=== PATIENT | female | born 1945 | race Caucasian/White ===

== ENCOUNTER → 2019-08-21 | Outpatient (CLI) | payer MEDICARE, BC | END | disposition home or self-care (01) | LOC: CFH 10:48 | PROVIDERS: ATTEND Nurse Practitioner Family | DX: N63.10 Unspecified lump in the right breast, unspecified quadrant (principal) | CPT/HCPCS: 77065 ==

== ENCOUNTER → 2019-11-02 | Outpatient (CLI) | payer MEDICARE, BC ==
[~2019-11-02] MED LIST: OMNIPAQUE 350 MG/ML, 75ML BOTTLE ONE
[2019-11-02 13:03] LABS: CREATININE 1.25 mg/dL (0.55-1.02)
== END | disposition home or self-care (01) ==
LOC: RAD 12:25
PROVIDERS: ATTEND Nurse Practitioner Family
DX: J43.2 Centrilobular emphysema (principal); R91.8 Other nonspecific abnormal finding of lung field; I51.7 Cardiomegaly; R59.9 Enlarged lymph nodes, unspecified
CPT/HCPCS: 36415; 71260; 82565; Q9967

== ENCOUNTER 2019-11-12 06:07 | Day surgery (SDC) | payer MEDICARE, BC ==
[~2019-11-12] VITALS: Ht 162.6 cm; Wt 61.2 kg
[2019-11-12 06:45] VITALS: BP 118/83
--- NOTE | 2019-11-12 06:55 | NUR ---
BRIAN ESPINOZA-Fall Risk Medications NOT present and NOT receiving anticoagulants.
[2019-11-12 07:10] VITALS: BP 118/83
[2019-11-12] MEDS ORDERED: SODIUM CHLORIDE 0.9% 1,000 ML IV SCH (07:15)
[2019-11-12] MEDS ORDERED: TRAZODONE HCL PO (07:25)
[2019-11-12] MEDS ORDERED: DULOXETINE HCL PO (07:25)
[2019-11-12] MEDS ORDERED: METO25TA35 PO (07:25)
[2019-11-12] MEDS ORDERED: GABA300C10 PO (07:25)
[2019-11-12] MEDS ORDERED: HYDR25TA6 PO (07:25)
[2019-11-12] MEDS ORDERED: ALPR0.25 PO (07:25)
[2019-11-12] MEDS ORDERED: OMEP-110 PO (07:25)
[2019-11-12] MEDS ORDERED: FENTANYL PF 100 MCG/2ML ONE (08:04)
[2019-11-12] MEDS ORDERED: FLUMAZENIL 0.1 MG/1 ML, 5ML ONE (08:05)
[2019-11-12] MEDS ORDERED: NALOXONE 1 MG/ML, 2ML ONE (08:05)
[2019-11-12] MEDS ORDERED: MIDAZOLAM 1 MG/ML, 5ML ONE (08:05)
[2019-11-12] MEDS ORDERED: TRAZ-96 PO (14:32)
== END 2019-11-12 13:00 | disposition home or self-care (01) ==
LOC: OUT 06:07
PROVIDERS: ATTEND Nurse Practitioner Family
DX: R91.8 Other nonspecific abnormal finding of lung field (principal); C34.11 Malignant neoplasm of upper lobe, right bronchus or lung; I48.91 Unspecified atrial fibrillation; I10 Essential (primary) hypertension; Z79.899 Other long term (current) drug therapy; Z88.8 Allergy status to other drugs, medicaments and biological substances; Z91.040 Latex allergy status; Z98.1 Arthrodesis status
CPT/HCPCS: 32405; 77012; 88305; 88333; 99156; 99157; J2250; J3010; J7030; J2310

== ENCOUNTER 2019-11-12 13:01 | Emergency (ER) | payer MEDICARE, BC ==
[~2019-11-12] VITALS: Ht 162.6 cm; Wt 61.0 kg
[~2019-11-12 13:01] MED LIST changes: +ALPR0.25 PO; +DULOXETINE HCL PO; +GABA300C10 PO; +HYDR25TA6 PO; +METO25TA35 PO; +OMEP-110 PO; -OMNIPAQUE 350 MG/ML, 75ML BOTTLE ONE; +TRAZODONE HCL PO
--- NOTE | 2019-11-12 13:09 | NUR ---
[phone] MASHA, WILL INCIDENT ANALYST WHEN PT READY TO GO
--- NOTE | 2019-11-12 14:20 | NUR ---
PT UP TO BS COMMODE.
[2019-11-12] MEDS ORDERED: TRAZ-96 PO (14:32)
--- NOTE | 2019-11-12 14:40 | NUR ---
PT SITTING ON SIDE OF [facility].
--- NOTE | 2019-11-12 15:44 | NUR ---
CALLED CT; HOLD SPLINT UNTIL AFTER CT. [employer]INTENA[employer]CE MAN NOTIFIED.
[2019-11-12 15:46] VITALS: BP 150/57
--- NOTE | 2019-11-12 17:01 | NUR ---
PT REPORT TO ELIANE CROUCH RN. PT CARE TRANSFERRED.
--- NOTE | 2019-11-12 17:45 | NUR ---
PT REPORT FROM CATHIE CROUCH. PER WILLA, PT UNABLE TO AMBULATE USING CRUTCHES; WHEELCHAIR TO BE ORDERED.
--- NOTE | 2019-11-12 18:08 | NUR ---
[facility] CALLED TO SAY THEIR SYSTEM IS DOWN & WHEELCHAIR CAN NOT BE DELIVERED TO PT UNTIL INS IS VERIFIED - PROBABLY TOMORROW. COMPANY # [phone]. PT WILL BE NOTIFIED.
--- NOTE | 2019-11-12 18:25 | NUR ---
PT SITTING ON SIDE OF GURNEY, FULLY DRESSED, ANXIOUS TO LEAVE.
== END 2019-11-12 18:40 | disposition home or self-care (01) ==
LOC: ED 14:15
DX: S92.335A Nondisplaced fracture of third metatarsal bone, left foot, initial encounter for closed fracture (principal); K21.9 Gastro-esophageal reflux disease without esophagitis; I10 Essential (primary) hypertension; I48.91 Unspecified atrial fibrillation; Z90.49 Acquired absence of other specified parts of digestive tract; X50.1XXA Overexertion from prolonged static or awkward postures, initial encounter; Y93.89 Activity, other specified; Y92.89 Other specified places as the place of occurrence of the external cause; Y99.8 Other external cause status
CPT/HCPCS: 29515; 99284

== ENCOUNTER 2019-11-21 09:19 | Outpatient (CLI) | payer MEDICARE, BC ==
[~2019-11-21 09:19] MED LIST changes: +TRAZ-96 PO
== END 2019-11-21 23:59 | disposition home or self-care (01) ==
LOC: PETCFH 09:19
PROVIDERS: ATTEND Nurse Practitioner Family
DX: I71.4 Abdominal aortic aneurysm, without rupture (principal); R06.2 Wheezing; M54.12 Radiculopathy, cervical region; R91.8 Other nonspecific abnormal finding of lung field; J43.9 Emphysema, unspecified; K57.30 Diverticulosis of large intestine without perforation or abscess without bleeding; N95.9 Unspecified menopausal and perimenopausal disorder; I70.0 Atherosclerosis of aorta; I70.8 Atherosclerosis of other arteries
CPT/HCPCS: 78815; A9552